=== PATIENT | female | born 1945 | race Caucasian/White ===

== ENCOUNTER 2017-01-12 09:23 | Day surgery (SDC) | payer MEDICARE ==
[~2017-01-12 09:23] MED LIST: CYCLOPENTOLATE 1% OPHTH DROPS 2 ML ONE; KETOROLAC 0.45% OPHTH DROPS ONE; PHENYLEPHRINE 2.5% OPHTH 2 ML DROPS ONE; PROPARACAINE 0.5% OPHTH DROPS 15 ML ONE
[2017-01-12] MEDS ORDERED: LACTATED RINGERS 1,000 ML IV ONE (10:02)
[2017-01-12] MEDS ORDERED: LACTATED RINGERS 500 ML IV ONE (10:02)
[2017-01-12] MEDS ORDERED: KETOROLAC 0.45% OPHTH DROPS OPTH ONE (10:17)
[2017-01-12] MEDS ORDERED: CYCLOPENTOLATE 1% OPHTH DROPS 2 ML OPTH ONE (10:17)
[2017-01-12] MEDS ORDERED: PROPARACAINE 0.5% OPHTH DROPS 15 ML OPTH ONE ×2 (10:17→11:09)
[2017-01-12] MEDS ORDERED: PHENYLEPHRINE 2.5% OPHTH 2 ML DROPS OPTH ONE (10:17)
[2017-01-12] MEDS ORDERED: EPINEPHrine 1 MG/ML AMP IVP ONE (11:09)
[2017-01-12] MEDS ORDERED: BRIMONIDINE 0.2% OPHTH DROPS 5 ML OPTH ONE (11:09)
[2017-01-12] MEDS ORDERED: CHONDR SULF/HYALURONATE SYRINGE IO ONE (11:09)
[2017-01-12] MEDS ORDERED: BSS/LIDOCAINE/EPINEPHRINE 1 ML SYRINGE IO ONE (11:10)
[2017-01-12] MEDS ORDERED: TIMOLOL 0.5% OPHTH DROPS OPTH ONE (11:10)
[2017-01-12] MEDS ORDERED: TRIAMCIN/MOXIFLOX/VANCO 1 ML VIAL IO ONE (11:10)
[2017-01-12] MEDS ORDERED: LIDOCAINE-MPF 2% 5 ML VIAL IM ONE (11:13)
[2017-01-12] MEDS ORDERED: PROPOFOL 200 MG/20 ML VIAL IVP ONE (11:13)
[2017-01-12] MEDS ORDERED: MIDAZOLAM 2 MG/2 ML VIAL IVP ONE (11:13)
[2017-01-12 11:27] VITALS: BP 149/60
--- NOTE | 2017-01-12 12:07 | OPERATIVE REPORT ---
DATE OF SURGERY: 01/12/2017 00:00:00 PREOPERATIVE DIAGNOSIS: Visually significant cataract, right eye. This is her first cataract surgery. POSTOPERATIVE DIAGNOSIS: Visually significant cataract, right eye. This is her first cataract surgery. NAME OF PROCEDURE: Phacoemulsification posterior chamber intraocular lens implant, right eye. SURGEON: Inder Becker MD. ANESTHESIA: Monitored anesthesia care. COMPLICATIONS: None. OPERATIVE INDICATIONS: This is a 71-year-old woman with progressive vision loss in the right eye due to a 2+ nuclear sclerotic and 2+ posterior subcapsular cataract. Best corrected visual acuity was 20/80 with glare to light perception vision in the right eye. Indications for surgery were overall decrease in vision , difficulty seeing words on is computer screen, difficulty reading, difficulty driving in low light or at night, difficulty driving because of headlights from other vehicles and/or streetlights. She was consented at length concerning the risks and benefits of cataract surgery, after which she expressed a desire to proceed with surgery. OPERATIVE PROCEDURE: The patient was taken into OR #2 and placed under monitored anesthesia care. A surgical time-out was conducted confirming the correct patient, correct procedure and correct surgical site. She was given topical anesthesia and then prepped and draped in the usual sterile fashion. The eye was entered at the 12 and 9 o'clock positions. Intracameral Shugarcaine was injected into the anterior chamber followed by Viscoat. Of note, the patient was moving rather violently during just about any procedure step to include the Intracameral Shugarcaine, but also every time the blood pressure cuff went off and even if we just dropped balanced salt solution on her eye. She was very nervous, very anxious, and would not stop talking. Once we got her settled down with about 4 mg of Versed and 30 mg of propofol, a continuous tear curvilinear capsulorrhexis was performed without incident. The nucleus was hydrodissected and phacoemulsified. However, at the end of the phacoemulsification there was a small hole in the posterior capsule superonasally. No vitreous was evident and Viscoat was injected through the rent to push back the vitreous. The small amount of cortex that was left temporally was evacuated using automated infusion aspiration. Provisc was injected into the capsular bag and a 11.5 diopter intraocular lens inserted into the bag. Approximately 0.7 mL of a mixture of triamcinolone, moxifloxacin, and vancomycin was injected subconjunctivally in the superior quadrant for infection and inflammation prophylaxis. Again, a lot of patient movement and hystrionics during the subconjunctival injection and during the case. I/A was used to evacuate the viscoelastic materials. The eye was inflated to a physiologic pressure using balanced salt solution and found to be water tight. At no time was there evidence of vitreous through the rent around the iris or to either of the wounds. The patient was taken from the operating room in good condition and given postoperative instructions. JOB #: [id number] EXT JOB #:[id number] IVY
== END 2017-01-12 09:24 | disposition home or self-care (01) ==
LOC: SDS 09:23
PROVIDERS: ATTEND Ophthalmology
PROC: 08RJ3JZ Replacement of Right Lens with Synthetic Substitute, Percutaneous Approach (ICD-10-PCS; principal; 2017-01-12 10:30)
DX: H25.811 Combined forms of age-related cataract, right eye (principal)
CPT/HCPCS: 66984; A9270; J3490; V2632

== ENCOUNTER 2022-12-01 12:13 | Emergency (ER) | payer MEDICARE ==
[2022-12-01] MEDS ORDERED: SODIUM CHLORIDE 0.9% 1,000 ML IV STA (12:58)
[2022-12-01] MEDS ORDERED: ONDANSETRON 4 MG/2 ML VIAL IVP STA (13:00)
[2022-12-01] MEDS ORDERED: HYDROmorphone 1 MG/ML CARPUJECT IVP STA (13:00)
--- NOTE | 2022-12-01 13:09 | ED Physician Documentation ---
History of Present Illness - Stated complaint Stated Complaint: LT BACK PX - Chief complaint Chief Complaint: Back Pain - Additonal information Additional information: 76-year-old female presents emergency department for evaluation of acute left flank low back and anterior abdominal pain that woke her from sleep at 2 AM. She reports going to bed feeling well but the pain woke her up and would not subside. She describes it as stabbing in nature. No fevers, nausea, vomiting, diarrhea or urinary symptoms. When symptoms failed to resolve she called her PCP who advised her to come to the emergency department. Patient has a remote history of bilateral breast cancer treated more than 40 years ago with lumpectomy only. No history of chemotherapy or radiation. Patient denies any previous history of surgeries on her abdomen. She has never received a screening colonoscopy. Denies any recent changes to her bowel or stool movements. Review of Systems Constitutional: denies: Fever, Chills, Fatigue, Weight Loss Nose: reports: Reviewed and negative Throat: reports: Reviewed and negative Cardiac: reports: Reviewed and negative Respiratory: reports: Reviewed and negative GI: reports: Abdominal Pain Musculoskeletal: reports: Back pain Neurologic: reports: Reviewed and negative Psychiatric: reports: Reviewed and negative PD PAST MEDICAL HISTORY - Past Medical History Respiratory: None Endocrine/Autoimmune: None GI: None : None HEENT: Chronic vision loss Psych: None Musculoskeletal: Other Derm: None - Past Surgical History Ortho: Other - Present Medications Home Medications: Ambulatory Orders Medication Instructions Recorded Confirmed Cefpodoxime Proxetil [Vantin] 100 mg PO Q12H #14 tablet 12/01/22 Nystatin [Nystop] 1 applic TOP BID #15 gm 12/01/22 Ondansetron Odt [Zofran] 4 mg TL Q6H PRN #10 tablet 12/01/22 - Allergies Allergies/Adverse Reactions: Allergies Allergy/AdvReac Type Severity Reaction Status Date / Time No Known Drug Allergies Allergy Verified 12/01/22 12:23 PD ED PE NORMAL - General General: Alert and oriented X 3, No acute distress, Well developed/nourished (Obese.) - Neck Neck: Supple, no meningeal sign, No adenopathy - Cardiac Cardiac: RRR, No murmur - Respiratory Respiratory: No respiratory distress, Clear bilaterally - Abdomen Abdomen: Normal bowel sounds, Soft. No: Non tender (Focal tenderness along the left flank low back and near the CVA region.) - Back Back: No spinal TTP - Derm Derm: No rash - Extremities Extremities: No: No edema (Chronic lymphedema of the right lower extremity) - Neuro Neuro: Alert and oriented X 3 Eye Opening: Spontaneous Motor: Obeys Commands Verbal: Oriented GCS Score: 15 Results - Vitals Vitals: Vital Signs - 24 hr 12/01/22 12/01/22 12/01/22 12:14 14:10 14:11 Temperature 36.2 C L Heart Rate 101 H Respiratory 18 Rate Blood Pressure O2 Saturation 95 84 L 92 If not protocol 2 : Oxygen Flow, liters/minute 12/01/22 12/01/22 12/01/22 15:30 16:02 16:07 Temperature Heart Rate 89 87 Respiratory 20 Rate Blood Pressure 133/60 H 122/99 H O2 Saturation 94 96 If not protocol 2 : Oxygen Flow, liters/minute Oxygen O2 Source Room air - Labs Labs: Laboratory Tests 12/01/22 12/01/22 12/01/22 13:08 13:08 15:00 WBC 13.9 H RBC 5.05 Hgb 14.2 Hct 45.0 MCV 89.1 MCH 28.1 MCHC 31.6 L RDW 14.0 Plt Count 162 MPV 8.6 Neut # (Auto) 13.3 H Lymph # (Auto) 0.[address] [place] # (Auto) 0.2 Eos # (Auto) 0.0 Baso # (Auto) 0.0 Absolute Nucleated RBC 0.00 Nucleated RBC % 0.0 Sodium 138 Potassium 4.1 Chloride 106 Carbon Dioxide 23 Anion Gap 9.0 BUN 21 H Creatinine 1.6 H Estimated GFR (MDRD) 31 L Glucose 112 H Calcium 8.8 Total Bilirubin 2.5 H AST 171 H ALT 101 H Alkaline Phosphatase 139 H Total Protein 6.6 L Albumin 3.4 Globulin 3.2 Albumin/Globulin Ratio 1.1 Lipase 25 Urine Color DARK YELLOW Urine Clarity CLEAR Urine pH 5.0 Ur Specific [place] 1.010 Urine Protein NEGATIVE Urine Glucose (UA) NEGATIVE Urine Ketones NEGATIVE Urine Occult Blood TRACE-INTA Urine Nitrite POSITIVE H Urine Bilirubin NEGATIVE Urine Urobilinogen 0.2 (NORMAL) Ur Leukocyte Esterase NEGATIVE Urine RBC 0-5 Urine WBC 0-3 Ur Squamous Epith Cells FEW Squamous Urine Bacteria Few Ur Microscopic Review INDICATED Urine Culture Comments INDICATED - Rads (name of study) CT abd Relevant Findings:: Final report received (There are 2 fairly large nonobstructing left renal stones. There is no hydronephrosis. There is no ureter stone identified. 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 Probable significant thickening of the endometrium of the uterus. No acute abdominal proce) PD Medical Decision Making - ED course Complexity details: reviewed results, re-evaluated patient, considered differential, d/w patient ED course: 76-year-old female presents emergency department for evaluation of acute left flank pain that woke her from sleep this morning. She does have a remote history of breast cancer and has never had a screening colonoscopy. On exam she was very tender in the left flank and posterior back. I initially obtained a CBC, electrolytes that showed mild leukocytosis. She does have some mild chronic kidney disease as well as the finding of abnormal liver function test. Subsequently an in and out urine catheterization showed that the patient had nitrite positive urine. We did do a CT of the abdomen with contrast that showed 2 large nonobstructing renal stones without hydronephrosis. There was no ureter stone identified. The CT scan noted that there was an unremarkable liver gallbladder and biliary tree. However the abnormal LFTs were bothersome. But on evaluation the patient had no right-sided or right upper quadrant abdominal pain. Patient's lipase was normal. Subsequently here in the emergency department the patient was administered a gram of ceftriaxone IV for her cystitis. There is nothing to suggest pyelonephritis or obstructing stone within the ureter. Patient will be started on Vantin for treatment of the UTI. I am also can prescribe a limited amount of Zofran for her nausea. Patient is advised to follow closely with her primary care doctor to discuss today's ED visit. She would certainly benefit from a colonoscopy as well as further evaluation and testing of her abnormal liver function tests which given the lack of abdominal tenderness may be JOHNSON. Departure - Departure Disposition: 01 Home, Self Care Clinical Impression: Left flank pain, Abnormal LFTs, Kidney stone, Decreased renal function, Yeast dermatitis Acute cystitis Qualifiers: Hematuria presence: without hematuria Qualified Code(s): N30.00 - Acute cystitis without hematuria Condition: Stable Record reviewed to determine appropriate education?: Yes Instructions: ED Stone Kidney Undescended No Sx Follow-Up: Hailee Mcmanus MD [Primary Care Provider] - Prescriptions: Nystatin [Nystop] 1 applic TOP BID #15 gm Cefpodoxime Proxetil [Vantin] 100 mg PO Q12H #14 tablet Ondansetron Odt [Zofran] 4 mg TL Q6H PRN #10 tablet PRN Reason: Nausea / Vomiting Comments: You are seen today for pain on the left side of your abdomen. It does appear that you likely have a urinary tract infection. To treat this prescription for Vantin has been sent to the [facility] in [place]. I have also sent a prescription for Zofran medication to help with nausea. Your labs today showed a number of unexpected findings most notably that of abnormal liver function tests. The CT of your Abdomen did not show any abnormality within the liver gallbladder or pancreas. In addition to that she do not have pain in this region. I think important you discuss these abnormal liver function test with your primary care doctor. The CT scan did show that you have to fairly large stones within your left kidney that are not causing obstruction or hydronephrosis. You may benefit from referral to urology for further evaluation of the stones. I would also make the recommendation for you to get referred for a screening colonoscopy. You DUSA have some yeast dermatitis within the skin folds of your lower abdomen. Please apply the nystatin cream to this region twice daily. If you find that your symptoms are not improving, you develop any fevers, have uncontrolled vomiting, black or bloody stools then please return immediately to the ER for repeat evaluation. Discharge Date/Time: 12/01/22 16:29
[2022-12-01 13:31] LABS: ALBUMIN 3.4 g/dL (3.2-5.5); ALBUMIN/GLOBULIN RATIO 1.1 (1.0-2.2); BILIRUBIN,TOTAL 2.5 mg/dL (0.2-1.0); CALCIUM 8.8 mg/dL (8.5-10.3); CREATININE 1.6 mg/dL (0.4-1.0); POTASSIUM 4.1 mmol/L (3.5-5.0); TOTAL PROTEIN 6.6 g/dL (6.7-8.2)
[2022-12-01] MEDS ORDERED: iohexoL-300 100 ML VIAL ONE (13:39)
[2022-12-01] MEDS ORDERED: iohexoL-300 100 ML VIAL IVP ONE (13:58)
--- NOTE | 2022-12-01 14:28 | CT Report ---
PROCEDURE: ABDOMEN/PELVIS W INDICATIONS: left flank/back pain CONTRAST: 100mL Omni 300 TECHNIQUE: After the administration of intravenous contrast, 5 mm thick sections acquired from the diaphragms to the symphysis. 5 mm thick coronal and sagittal reformats were acquired. For radiation dose reducti on, the following was used: automated exposure control, adjustment of mA and/or kV according to crispin ent size. COMPARISON: None FINDINGS: Image quality: Excellent. Lung bases and heart: Unremarkable. Liver: No solid mass. Gallbladder and biliary tree: No radiopaque stones or wall thickening. No biliary dilation. Spleen: No splenomegaly. Pancreas: No pancreatic ductal dilation. Adrenals: No adrenal nodule. Kidneys and ureters: There are 2 nonobstructing left renal stones, the largest of which measures appr oximately 1.3 x 1.1 cm. It has a Hounsfield measurement of 184. No left hydronephrosis. No delayed ne phrogram. No ureteral stones identified. Bowel and peritoneum: No bowel distension. No pathologic free fluid. Lymph nodes: No central or retroperitoneal adenopathy. Vessels: No infrarenal aortic aneurysm. Moderate soft plaque in the supraceliac aorta resulting in a approximately 30% stenosis. PELVIS Reproductive organs: There is probable significant thickening of the endometrium of the uterus.. Bladder: No abnormal wall thickening, accounting for underdistension. Pelvic lymph nodes: No pelvic adenopathy by size criteria. Bones: No aggressive osseous abnormality. Other: No significant ventral or inguinal hernia. IMPRESSION: 1. There are 2 fairly large nonobstructing left renal stones. There is no hydronephrosis. There is no ureteral stone identified. 2. 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 3. Probable significant thickening of the endometrium of the uterus. 4. No acute abdominal process identified. Comment: Recommend nonemergent pelvic ultrasound to evaluate the thickness of the endometrium. Reviewed by: Chi Romero MD on 12/01/2022 2:27 PM PDT Approved by: Chi Romero MD on 12/01/2022 2:27 PM PDT Station ID: [id number]
[2022-12-01 15:11] LABS: BILIRUBIN,URINE NEGATIVE (NEGATIVE); GLUCOSE, URINE (UA) NEGATIVE (NEGATIVE); KETONES,URINE (UA) NEGATIVE (NEGATIVE); LEUKOCYTE ESTERASE, URINE NEGATIVE (NEGATIVE); NITRITE,URINE POSITIVE (NEGATIVE); OCCULT BLOOD,URINE TRACE-INTA (NEGATIVE); PROTEIN,URINE NEGATIVE (NEGATIVE); UROBILINOGEN,URINE 0.2 (NORMAL) E.U./dL (NORMAL)
[2022-12-01 15:15] LABS: CLARITY,URINE CLEAR (CLEAR)
[2022-12-01 15:21] LABS: BACTERIA,URINE Few /HPF (None Seen); RBC,URINE 0-5 /HPF (0-5); SQUAMOUS EPITHELIAL CELL,UR FEW Squamous (<= Few); WBC,URINE 0-3 /HPF (0-5)
[2022-12-01] MEDS ORDERED: cefTRIAXone 1 GM VIAL IVP STA (15:27)
[2022-12-01] MEDS ORDERED: cefTRIAXone 1 GM in SODIUM CHLORIDE 0.9% MINIBAG 100 ML IV STA (15:31)
[2022-12-01] MEDS ORDERED: KETOROLAC 30 MG/ML VIAL IVP STA (15:48)
[2022-12-01] MEDS: ONDANSETRON 4 MG/2 ML VIAL IVP STA ×2 (15:53→16:06)
[2022-12-01 16:05] VITALS: BP 122/99
[2022-12-02 16:31] LABS: HGB - HEMOGLOBIN 14.2 g/dL (12.0-16.0); RED BLOOD COUNT 5.05 10^6/uL (4.20-5.40); WHITE BLOOD COUNT 13.9 x10^3/uL (4.8-10.8)
[2022-12-02 16:32] LABS: MEAN CORPUSCULAR HEMOGLOBIN 28.1 pg (27.0-31.0); MEAN CORPUSCULAR HGB CONC 31.6 g/dL (32.0-36.0); MEAN CORPUSCULAR VOLUME 89.1 fL (81.0-99.0)
[2022-12-02 16:33] LABS: MEAN PLATELET VOLUME 8.6 fL (7.9-10.8); PLT - PLATELET COUNT 162 10^3/uL (130-450)
[2022-12-02 16:34] LABS: LYMPHOCYTES % (AUTO) 1.8 %; NEUTROPHILS % (AUTO) 95.2 %
[2022-12-02 16:35] LABS: BASOPHILS % (AUTO) 0.3 %; EOSINOPHILS % (AUTO) 0.1 %; LYMPHOCYTES # (AUTO) 0.3 10^3/uL (1.5-3.5); MONOCYTES # (AUTO) 0.2 10^3/uL (0.0-1.0); MONOCYTES % (AUTO) 1.4 %; NEUTROPHILS # (AUTO) 13.3 10^3/uL (1.5-6.6)
== END 2022-12-01 16:29 | disposition home or self-care (01) ==
LOC: ED 12:13
DX: N30.00 Acute cystitis without hematuria (principal); R10.9 Unspecified abdominal pain; N20.0 Calculus of kidney; R74.01 Elevation of levels of liver transaminase levels; B37.2 Candidiasis of skin and nail; N18.9 Chronic kidney disease, unspecified
CPT/HCPCS: 36415; 74177; 80053; 81001; 83690; 85025; 87086; 87181; 96374; 96375; 99284; 99285; J1170; Q9967; 81003

== ENCOUNTER 2023-01-03 09:02 | Outpatient (CLI) | payer MEDICARE | END 2023-01-03 23:59 | disposition critical access hospital (66) | LOC: EMS 09:02 | DX: R53.83 Other fatigue (principal); R53.1 Weakness; R10.31 Right lower quadrant pain; R11.2 Nausea with vomiting, unspecified; R39.89 Other symptoms and signs involving the genitourinary system; R00.0 Tachycardia, unspecified | CPT/HCPCS: A0425; A0427 ==

== ENCOUNTER 2023-01-03 09:24 | Emergency (ER) | payer MEDICARE ==
--- NOTE | 2023-01-03 10:16 | ED Physician Documentation ---
History of Present Illness - Stated complaint Stated Complaint: WEAKNESS/NOT FEELING WELL - Chief complaint Chief Complaint: General - History obtained from History obtained from: Patient, EMS - History of Present Illness Timing: How many weeks ago (1) - Additonal information Additional information: Claudia Laura is a 77-year-old female with a history of chronic kidney disease and frequent urinary tract infection. She has developed a fever over the past week without other specific symptoms until about 2 to 3 days ago when she developed urinary urgency frequency and dysuria. She has had this previously with urinary tract infection. She has developed increasing weakness over the past 3 days. She initially told me that she drank a considerable amount of fluid all the time. When I inquired about how she been doing in the last week she told me not very much. Today she is feeling weak and unable to care for herself. She has called the ambulance for evaluation. Review of Systems Constitutional: reports: Fever, Chills Ears: denies: Ear pain Nose: denies: Congestion Throat: denies: Sore throat Cardiac: denies: Chest pain / pressure, Palpitations Respiratory: denies: Dyspnea, Cough, Wheezing GI: reports: Nausea. denies: Abdominal Pain, Vomiting, Constipation, Diarrhea : reports: Dysuria, Frequency Skin: denies: Rash Musculoskeletal: denies: Neck pain, Back pain, Extremity pain Neurologic: reports: Generalized weakness. 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 - Present Medications Home Medications: Ambulatory Orders Medication Instructions Recorded Confirmed Acetaminophen [Tylenol] 650 mg PO Q4HR PRN tab 12/04/22 Ondansetron Odt [Zofran Odt] 4 mg TL Q6HR PRN #10 tab 12/04/22 cephALEXin [Keflex] 500 mg PO Q6H #28 cap 01/03/23 - Allergies Allergies/Adverse Reactions: Allergies Allergy/AdvReac Type Severity Reaction Status Date / Time No Known Drug Allergies Allergy Verified 12/02/22 15:51 - Social History Does the pt smoke?: No Smoking Status: Never smoker Does the pt drink ETOH?: No Does the pt have substance abuse?: No - Immunizations Immunizations are current?: Yes - POLST Patient has POLST: No PD ED PE NORMAL - Vitals Vital signs reviewed: Yes (Tachycardic hypotensive and hypoxic) - General General: Alert and oriented X 3, No acute distress, Well developed/nourished - HEENT HEENT: Atraumatic, PERRL, EOMI, Other (Parched mucous membranes) - Neck Neck: Supple, no meningeal sign, No bony TTP - Cardiac Cardiac: No murmur, Other (Tachycardic to 100) - Respiratory Respiratory: No respiratory distress, Clear bilaterally - Abdomen Abdomen: Normal bowel sounds, Soft, Non tender, Non distended, No organomegaly - Back Back: No CVA TTP, No spinal TTP - Derm Derm: Normal color, Warm and dry, No rash - Extremities Extremities: No deformity, No edema - Neuro Neuro: Alert and oriented X 3, lacemaker 2-12 intact, No motor deficit, No sensory deficit, Normal speech Eye Opening: Spontaneous Motor: Obeys Commands Verbal: Oriented GCS Score: 15 - Psych Psych: Normal mood, Normal affect Results - Vitals Vitals: Vital Signs - 24 hr 01/03/23 01/03/23 01/03/23 09:36 09:39 12:10 Temperature 36.4 C L Heart Rate 104 H 97 Respiratory 21 18 Rate Blood Pressure 107/59 L 122/81 H O2 Saturation 87 L 93 93 If not protocol 2 : Oxygen Flow, liters/minute 01/03/23 01/03/23 01/03/23 13:18 14:35 16:52 Temperature Heart Rate 91 95 74 Respiratory 22 19 19 Rate Blood Pressure 118/82 H 137/84 H 163/74 H O2 Saturation 96 92 92 If not protocol : Oxygen Flow, liters/minute 01/03/23 16:53 Temperature 36 C L Heart Rate 88 Respiratory 18 Rate Blood Pressure O2 Saturation 95 If not protocol : Oxygen Flow, liters/minute Oxygen O2 Source Room air - Labs Labs: Laboratory Tests 01/03/23 01/03/23 01/03/23 12:12 12:12 12:12 WBC 13.0 H RBC 4.61 Hgb 12.8 Hct 41.2 MCV 89.4 MCH 27.8 MCHC 31.1 L RDW 13.9 Plt Count 241 MPV 9.7 Neut # (Auto) 10.5 H Lymph # (Auto) 1.4 L [place] # (Auto) 1.0 Eos # (Auto) 0.0 Baso # (Auto) 0.1 Absolute Nucleated RBC 0.00 Nucleated RBC % 0.0 Sodium 132 L Potassium 4.5 Chloride 102 Carbon Dioxide 23 Anion Gap 7.0 BUN 30 H Creatinine 1.9 H Estimated GFR (MDRD) 26 L Glucose 114 H Calcium 8.7 Total Bilirubin 2.2 H AST 40 ALT 31 Alkaline Phosphatase 166 H Total Protein 6.8 Albumin 3.2 Globulin 3.6 Albumin/Globulin Ratio 0.9 L Lipase 174 H TSH 3.73 Thyroxine (T4) 10.5 Urine Color Urine Clarity Urine pH Ur Specific [place] Urine Protein Urine Glucose (UA) Urine Ketones Urine Occult Blood Urine Nitrite Urine Bilirubin Urine Urobilinogen Ur Leukocyte Esterase Urine RBC Urine WBC Ur Squamous Epith Cells Urine Bacteria Ur Microscopic Review Urine Culture Comments 01/03/23 14:32 WBC RBC Hgb Hct MCV MCH MCHC RDW Plt Count MPV Neut # (Auto) Lymph # (Auto) [place] # (Auto) Eos # (Auto) Baso # (Auto) Absolute Nucleated RBC Nucleated RBC % Sodium Potassium Chloride Carbon Dioxide Anion Gap BUN Creatinine Estimated GFR (MDRD) Glucose Calcium Total Bilirubin AST ALT Alkaline Phosphatase Total Protein Albumin Globulin Albumin/Globulin Ratio Lipase TSH Thyroxine (T4) Urine Color BROWN Urine Clarity SL. CLOUDY Urine pH 5.0 Ur Specific [place] >=1.030 H Urine Protein 30 H Urine Glucose (UA) NEGATIVE Urine Ketones NEGATIVE Urine Occult Blood NEGATIVE Urine Nitrite POSITIVE H Urine Bilirubin MODERATE H Urine Urobilinogen 4 H Ur Leukocyte Esterase TRACE H Urine RBC 0-5 Urine WBC 11-25 H Ur Squamous Epith Cells FEW Squamous Urine Bacteria Few Ur Microscopic Review INDICATED Urine Culture Comments INDICATED - Rads (name of study) chest Relevant Findings:: Prelim report reviewed (Impression: Trace left pleural effusion. No definite focal infiltrate. No pleural effusion or pneumothorax.), EMP independent interpretation of test Procedures - IVC sono (time) 1003 Bedside IVC sono: IVC measures (cm) (0.85), Dehydration (est 2 liter deficit) PD Medical Decision Making - ED course Complexity details: reviewed old records, reviewed results, re-evaluated patient, considered differential, d/w patient, d/w family Reviewed Lab Results: We checked a complete blood count showing an elevated white blood cell count at 13,000. She had a normal hemoglobin hematocrit and platelets as well as normal indices. Her serum sodium was mildly low at 132 BUN was elevated 30 creatinine at 1.9. BUN is elevated from her last visit but improved from the initial for that admission. Creatinine is as high as its been for the patient. Liver functions show an elevated bilirubin of 2.2 similar to the range the patient has had previously AST and ALT are normal alkaline phosphatase mildly elevated at 166 lipase elevated at 1 174. A urinalysis shows a specific gravity of greater than 1.030 there is urine protein present it is positive for nitrite moderate bilirubin urobilinogen. +Leukocyte Estrace as well as 11-25 white blood cells per high-powered field and few bacteria. This specimen did make the grade for culture. I interpreted these laboratory studies to indicate the patient has urinary tract infection and is symptomatic from it. She is found to be significantly dehydrated on interrogation of the IVC with POCUS. She is administered water orally and IV saline and eventually given IV rocephin. I did not find any tenderness to the anterior abdomen to suggest there is a continued problem with gallbladder disease. Her liver functions appear to have gone up and down and I am uncertain what to make of this specifically. She did have a visit to the surgeon that was supposed to take today and she missed that appointment. She does not feel that she will need to have any kind of surgery done to her gallbladder. ED course: 77-year-old female presents to the emergency department with significant dehydration, evidence of urinary tract infection and weakness. She was administered intravenous saline and Rocephin. She has improvement in her strength and stands and walks and wants to go home but still feels fatigued. Her oxygen saturation was low on admission and improved with oxygen. Departure - Departure Disposition: 01 Home, Self Care Clinical Impression: Dehydration Urinary tract infection Qualifiers: Urinary tract infection type: acute cystitis Hematuria presence: without hoda turia Qualified Code(s): N30.00 - Acute cystitis without hematuria Condition: Stable Instructions: ED Dehydration, ED UTI Cystitis Female Follow-Up: Hailee Mcmanus MD [Physician No Access] - Prescriptions: cephALEXin [Keflex] 500 mg PO Q6H #28 cap Comments: Cheo today it looks like you were significantly dehydrated and have a urinary tract infection. I have E scribed some Keflex to [facility] [place]. You can begin taking this tomorrow. Drink extra fluids and follow up with Dr. Mcmanus. Thyroid function tests are pending and a follow up with your doctor is important. Forms: PCP List Discharge Date/Time: 01/03/23 16:55
[2023-01-03] MEDS ORDERED: SODIUM CHLORIDE 0.9% 1,000 ML IV STA ×2 (10:17→12:14)
--- NOTE | 2023-01-03 10:44 | XRAY Report ---
PROCEDURE: Chest 2 View X-Ray INDICATIONS: cough TECHNIQUE: 2 views of the chest were acquired. COMPARISON: None. FINDINGS: Surgical changes and devices: None. Lungs and pleura: Trace left pleural effusion is noted with blunting of left costophrenic angle. No definite focal infiltrate. No pneumothorax. Mediastinum: Tortuous thoracic aorta is seen with aortic arch calcifications. Heart size is enlarged .. Bones and chest wall: No suspicious bony lesions. Overlying soft tissues appear unremarkable. IMPRESSION: Trace left pleural effusion. No definite focal infiltrate. No pleural effusion or pneumothorax. Reviewed by: Gerardo Becker MD on 01/03/2023 10:43 AM PDT Approved by: Gerardo Becker MD on 01/03/2023 10:43 AM PDT Station ID: [id number]
[2023-01-03 12:19] LABS: BASOPHILS # (AUTO) 0.1 10^3/uL (0.0-0.1); BASOPHILS % (AUTO) 0.4 %; EOSINOPHILS % (AUTO) 0.1 %; HCT - HEMATOCRIT 41.2 % (37.0-47.0); HGB - HEMOGLOBIN 12.8 g/dL (12.0-16.0); LYMPHOCYTES # (AUTO) 1.4 10^3/uL (1.5-3.5); LYMPHOCYTES % (AUTO) 10.4 %; MEAN CORPUSCULAR HEMOGLOBIN 27.8 pg (27.0-31.0); MEAN CORPUSCULAR HGB CONC 31.1 g/dL (32.0-36.0); MEAN CORPUSCULAR VOLUME 89.4 fL (81.0-99.0); MEAN PLATELET VOLUME 9.7 fL (7.9-10.8); MONOCYTES % (AUTO) 7.6 %; NEUTROPHILS # (AUTO) 10.5 10^3/uL (1.5-6.6); NEUTROPHILS % (AUTO) 80.9 %; PLT - PLATELET COUNT 241 10^3/uL (130-450); RED BLOOD COUNT 4.61 10^6/uL (4.20-5.40); RED CELL DISTRIBUTION WIDTH 13.9 % (12.0-15.0)
[2023-01-03 12:34] LABS: ALBUMIN 3.2 g/dL (3.2-5.5); ALBUMIN/GLOBULIN RATIO 0.9 (1.0-2.2); BILIRUBIN,TOTAL 2.2 mg/dL (0.2-1.0); CALCIUM 8.7 mg/dL (8.5-10.3); CREATININE 1.9 mg/dL (0.6-1.3); POTASSIUM 4.5 mmol/L (3.5-4.5); TOTAL PROTEIN 6.8 g/dL (6.4-8.9)
[2023-01-03 14:40] LABS: GLUCOSE, URINE (UA) NEGATIVE (NEGATIVE); KETONES,URINE (UA) NEGATIVE (NEGATIVE); LEUKOCYTE ESTERASE, URINE TRACE (NEGATIVE); NITRITE,URINE POSITIVE (NEGATIVE); OCCULT BLOOD,URINE NEGATIVE (NEGATIVE); PROTEIN,URINE 30 mg/dL (NEGATIVE); UROBILINOGEN,URINE 4 E.U./dL (NORMAL)
[2023-01-03 14:50] LABS: BILIRUBIN,URINE MODERATE (NEGATIVE); CLARITY,URINE SL. CLOUDY (CLEAR); ICTOTEST,URINE POSITIVE
[2023-01-03 14:51] LABS: BACTERIA,URINE Few /HPF (None Seen); RBC,URINE 0-5 /HPF (0-5); SQUAMOUS EPITHELIAL CELL,UR FEW Squamous (<= Few)
[2023-01-03] MEDS ORDERED: cefTRIAXone 1 GM in SODIUM CHLORIDE 0.9% MINIBAG 100 ML IV STA (15:07)
[2023-01-03] MEDS ORDERED: KETOROLAC 30 MG/ML VIAL IVP STA (15:27)
[2023-01-03 16:58] VITALS: BP 163/74
[2023-01-03 17:12] LABS: THYROID STIMULATING HORMONE 3.73 uIU/mL (0.34-5.60)
== END 2023-01-03 16:55 | disposition home or self-care (01) ==
LOC: EDUNIT# → ED 09:24
DX: N30.00 Acute cystitis without hematuria (principal); E86.0 Dehydration
CPT/HCPCS: 36415; 80053; 81001; 81003; 83690; 84436; 84443; 85025; 87086; 96361; 96365; 96375; 99284